=== PATIENT | male | born 1985 | race Caucasian/White ===

== ENCOUNTER 2018-11-22 14:23 | Emergency (ER) | payer BC ==
[2018-11-22 15:20] VITALS: BP 131/80
--- NOTE | 2018-11-22 15:26 | UC ---
Lower Extremity/Ankle HPI - HPI Summary HPI Summary: LEFT ANKLE INJURY. LAST NIGHT HE "TWISTED" THE ANKLE , STEPPED IN A WHOLE ON THE LAWN. HX OF SEVERAL ANKLE SPRAINS IN THE PAST. - History of Current Complaint Chief Complaint: UCLowerExtremity Stated Complaint: LEFT ANKLE INJURY Time Seen by Provider: 11/22/18 15:10 Hx Obtained From: Patient Onset/Duration: Sudden Onset, Lasting Hours Severity Initially: Severe Severity Currently: Severe Pain Intensity: 9 Aggravating Factor(s): Standing, Ambulation Alleviating Factor(s): Rest Able to Bear Weight: Yes - Allergies/Home Medications Allergies/Adverse Reactions: Allergies Allergy/AdvReac Type Severity Reaction Status Date / Time enviromental Allergy Unknown Unknown Uncoded 11/22/18 15:13 Reaction Details Home Medications: Home Medications Aspirin TAB* [Aspirin 325 MG TAB*] 650 mg PO Q6H PRN 11/22/18 [History Confirmed 11/22/18] PMH/Surg Hx/FS Hx/Imm Hx Previously Healthy: Yes - Surgical History Surgical History: Yes Surgery Procedure, Year, and Place: sinus. TONSILLECTOMY,DEVIATED SEPTUM. - Family History Known Family History: Positive: Hypertension - Social History Alcohol Use: Weekly Alcohol Amount: 2 times a week Substance Use Type: None Smoking Status (MU): Never Smoked Tobacco - Immunization History Most Recent Influenza Vaccination: none Review of Systems All Other Systems Reviewed And Are Negative: Yes Musculoskeletal: Positive: Arthralgia Is Patient Immunocompromised?: No Physical Exam Triage Information Reviewed: Yes Appearance: Well-Appearing, Well-Nourished, Pain Distress Vital Signs: Initial Vital Signs Temp 98 F 11/22/18 15:15 Pulse 81 11/22/18 15:15 Resp 14 11/22/18 15:15 BP 131/80 11/22/18 15:15 Pulse Ox 99 11/22/18 15:15 Vital Signs Reviewed: Yes Eye Exam: Normal ENT Exam: Normal Dental Exam: Normal Neck exam: Normal Respiratory Exam: Normal Cardiovascular Exam: Normal Abdominal Exam: Normal Bowel Sounds: Positive: Present Musculoskeletal: Positive: Strength Intact, ROM Intact, Edema @ - mild Neurological Exam: Normal Psychological Exam: Normal Skin Exam: Normal Lower Extremity Course/Dx - Course Course Of Treatment: hx obtained, exam performed ,meds reviewed, xray obtained, pain is located at the anteromedial calcaneous - Differential Dx/Diagnosis Differential Diagnosis/HQI/PQRI: Contusion, Fracture (Closed), Sprain, Strain Provider Diagnosis: Sprain involving medial aspect of ankle Discharge - Sign-Out/Discharge Documenting (check all that apply): Patient Departure All imaging exams completed and their final reports reviewed: No - Discharge Plan Condition: Stable Disposition: HOME Patient Education Materials: Ankle Sprain (ED), Crutch Instructions (ED) Referrals: No Primary Care Phys,NOPCP [Primary Care Provider] - Cedric Crowe MD [Medical Doctor] - Additional Instructions: 1. use the crutches to help work back into weight bearing 2. Juan R wrap on for swelling and support, elevate at rest 3. Ibuprofen for pain and swelling. 4. If no improvement in the next few days follow up with orthopedics - Billing Disposition and Condition Condition: STABLE Disposition: Home - Attestation Statements Provider Attestation: I was available for consult. This patient was seen by the [facility]. Patient was not presented to, seen by or examined by me. Aiden Carlos MD
--- NOTE | 2018-11-23 13:59 | ED ---
Progress - Progress Note Progress Note: xray final read: NAD Course/Dx - Diagnoses Provider Diagnoses: Sprain involving medial aspect of ankle Discharge - Sign-Out/Discharge Documenting (check all that apply): Patient Departure All imaging exams completed and their final reports reviewed: Yes - Discharge Plan Condition: Stable Disposition: HOME Patient Education Materials: Ankle Sprain (ED), Crutch Instructions (ED) Referrals: Cedric Crowe MD [Medical Doctor] - No Primary Care Phys,NOPCP [Primary Care Provider] - Additional Instructions: 1. use the crutches to help work back into weight bearing 2. Juan R wrap on for swelling and support, elevate at rest 3. Ibuprofen for pain and swelling. 4. If no improvement in the next few days follow up with orthopedics - Billing Disposition and Condition Condition: STABLE Disposition: Home
== END 2018-11-22 16:19 | disposition home or self-care (01) ==
LOC: UCCORT 14:23
DX: S93.492A Sprain of other ligament of left ankle, initial encounter (principal); W17.2XXA Fall into hole, initial encounter; Y92.9 Unspecified place or not applicable
CPT/HCPCS: 99213; G0463